=== PATIENT | female | born 1990 | race Hispanic/Latino ===

== ENCOUNTER 2021-10-24 10:10 | Outpatient (CLI) | payer BC | END 2021-10-24 10:11 | disposition home or self-care (01) | LOC: CSHLAB 10:10 | PROVIDERS: ATTEND Obstetrics & Gynecology | DX: Z20.822 Contact with and (suspected) exposure to COVID-19 (principal) | CPT/HCPCS: 87811 ==

== ENCOUNTER 2021-10-26 06:00 | Inpatient (IN) | payer BC ==
[2021-10-26] MEDS: Lactated Ringer's 1,000 ML IV SCH ×2 (07:10→17:35)
[2021-10-26] MEDS ORDERED: HYDROcodone/Acetaminophen 5/325 mg Tablet PO PRN (07:37)
[2021-10-26] MEDS ORDERED: Penicillin G Potassium 5 MILL.UNITS in Sodium Chloride 0.9% 100 ML IVPB SCH (07:37)
[2021-10-26] MEDS ORDERED: Methylergonovine 0.2 MG/ML VIAL IM PRN (07:37)
[2021-10-26] MEDS ORDERED: Misoprostol 200 MCG TAB PR PRN (07:37)
[2021-10-26] MEDS ORDERED: NS w/ Oxytocin 30 units 500 ML IV SCH ×2 (07:37)
[2021-10-26] MEDS ORDERED: Acetaminophen 500 MG TAB PO PRN (07:37)
[2021-10-26] MEDS ORDERED: Lidocaine 1% (PF) 30 ML VIAL SC PRN (07:37)
[2021-10-26] MEDS ORDERED: Ibuprofen 800 MG TAB PO PRN (07:37)
[2021-10-26] MEDS ORDERED: Butorphanol Tartrate 1 MG/ML VIAL SLOW IVP PRN (07:37)
[2021-10-26] MEDS ORDERED: Promethazine HCl 25 MG/ML VIAL IM PRN (07:37)
[2021-10-26] MEDS ORDERED: Ondansetron PF 4 MG/2 ML Vial IVP PRN (07:37)
[2021-10-26] MEDS ORDERED: hydrALAZINE 20 MG/ML VIAL SLOW IVP PRN ×2 (07:37→14:30)
[2021-10-26] MEDS ORDERED: Carboprost 250 MCG/ML AMP IM PRN (07:37)
[2021-10-26] MEDS ORDERED: Diphenoxylate HCl/Atropine Tablet PO PRN ×2 (07:37)
[2021-10-26] MEDS ORDERED: Penicillin G Potassium 5 MILL.UNITS VIAL ONE (07:38)
[2021-10-26] MEDS ORDERED: NS w/ Oxytocin 30 units 500 ML ONE (07:39)
[2021-10-26 08:02] LABS: Hemoglobin 11.7 g/dL (12.0-15.5); Mean Corpuscular HGB CONC 32.5 g/dL (32.0-36.0); Mean Corpuscular Hemoglobin 27.7 pg (27.0-33.0); Mean Corpuscular Volume 85.1 fl (81.6-98.3); Platelet Count 395 10x3/uL (150-450); RBC Distribution Width 13.4 % (11.5-14.5); Red Blood Cell (RBC) Count 4.23 10x6/uL (3.90-5.03); White Blood Cell (WBC) Count 8.9 10x3/uL (3.5-10.5)
[2021-10-26 08:16] VITALS: BMI 28.1
[2021-10-26 08:28] LABS: Hep B Surf Ag Non-Reactive S/CO (NonReactive); Syphilis Antibody Nonreactive (Nonreactive); Syphilis Antibody Index 0.05 S/CO (<1.00 Non-Reactive)
[2021-10-26 08:34] LABS: HBSAg Index 0.19 S/CO (0-0.99)
[2021-10-26] MEDS: Penicillin G 2.5 MILL.units 2.5 MILL.UNITS in Premix Bag 1 BAG IVPB SCH ×2 (11:14→17:34)
[2021-10-26] MEDS ORDERED: Milk Of Magnesia 30 ML UDCUP PO PRN (14:30)
[2021-10-26] MEDS ORDERED: Boostrix 0.5 ML (Tdap) VIAL IM ONE (14:30)
[2021-10-26] MEDS ORDERED: diphenhydrAMINE 25 MG CAP PO PRN (14:30)
[2021-10-26] MEDS ORDERED: Bisacodyl 10 MG SUPP PR PRN (14:30)
[2021-10-26] MEDS ORDERED: Benzocaine-Menthol 82.5 ML CAN TOP PRN (14:30)
[2021-10-26] MEDS ORDERED: Preparation H Ointment 28 GM TUBE PR PRN (14:30)
[2021-10-26] MEDS ORDERED: traMADol HCl 50 MG TAB PO PRN (14:30)
[2021-10-26] MEDS ORDERED: Lanolin Ointment 7 GM TUBE TOP PRN (14:30)
[2021-10-26] MEDS: Ferrous Sulfate 325 MG TAB PO SCH (17:34)
[2021-10-26] MEDS: Ibuprofen 800 MG TAB PO SCH (21:00)
[2021-10-26] MEDS: Docusate 100 MG CAP PO SCH (21:00)
[2021-10-27] MEDS: Ibuprofen 800 MG TAB PO SCH ×2 (05:38→14:04)
[2021-10-27 07:54] VITALS: TEMP 98
[2021-10-27] MEDS ORDERED: Prenatal Vitamin 1 TAB PO SCH (09:00)
[2021-10-27] MEDS: Ferrous Sulfate 325 MG TAB PO SCH ×2 (09:14→15:44)
[2021-10-27] MEDS: Docusate 100 MG CAP PO SCH (09:14)
[2021-10-27 11:06] VITALS: BP 103/70
== END 2021-10-27 17:00 | disposition home or self-care (01) | DRG 807 ==
LOC: CSHLD 06:16 → CSHPED 16:30
PROVIDERS: ADMIT Obstetrics & Gynecology; ATTEND Obstetrics & Gynecology
PROC: 10E0XZZ Delivery of Products of Conception, External Approach (ICD-10-PCS; principal; 2021-10-26)
PROC: 0KQM0ZZ Repair Perineum Muscle, Open Approach (ICD-10-PCS; 2021-10-26)
DX: O70.1 Second degree perineal laceration during delivery (principal); Z37.0 Single live birth; Z3A.39 39 weeks gestation of pregnancy; Z20.822 Contact with and (suspected) exposure to COVID-19
CPT/HCPCS: 85027; 86780; 86850; 86900; 86901; 87340; 87811; J2540; J2590; J7120